=== PATIENT | male | born 1990 | race Caucasian/White ===

== ENCOUNTER 2020-03-07 07:21 | Emergency (ER) | payer OTHER ==
[~2020-03-07] VITALS: Ht 190.5 cm; Wt 111.1 kg
[2020-03-07 07:21] VITALS: BP_SYST 156
--- NOTE | 2020-03-07 07:21 | NUR ---
BROUGHT BACK TO BED #6 AND TRIAGED. REPORT GIVEN TO MARIKA
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
--- NOTE | 2020-03-07 07:50 | NUR ---
ER at bedside examining patient.
[2020-03-07 08:10] LABS: BASOPHILS % (AUTO) 0.6 % (0.0-2.0); EOSINOPHILS # (AUTO) 0.1 K/uL (0.0-0.4); EOSINOPHILS % (AUTO) 1.2 % (0.0-4.0); HEMATOCRIT 42.6 % (36-54); HEMOGLOBIN 13.9 g/dL (14.0-18.0); LYMPHOCYTES # (AUTO) 1.7 K/uL (1.0-5.5); LYMPHOCYTES % (AUTO) 27.8 % (20.5-51.5); MEAN CORPUSCULAR HEMOGLOBIN 28 pg (27-31); MEAN CORPUSCULAR HGB CONC 33 % (32-36); MEAN CORPUSCULAR VOLUME 85 fL (79.0-98.0); MONOCYTES # (AUTO) 0.5 K/uL (0.0-1.0); MONOCYTES % (AUTO) 8.8 % (1.7-9.3); NEUTROPHILS # (AUTO) 3.7 K/uL (1.8-7.7); NEUTROPHILS % (AUTO) 61.6 % (40.0-70.0); PLATELET COUNT (AUTO) 232 K/uL (130-430); RED BLOOD CELL COUNT(AUTO) 5.03 MIL/uL (4.2-6.2); RED CELL DISTRIBUTION WIDTH 13.1 % (9.0-15.0)
[2020-03-07 08:11] LABS: CALCIUM 9.7 mg/dL (8.4-11.0); CREATININE 1.11 mg/dL (0.55-1.30); POTASSIUM 3.6 mmol/L (3.5-5.1)
[2020-03-07 08:19] LABS: TOTAL BILIRUBIN 0.8 mg/dL (0.0-1.0)
[2020-03-07 08:50] VITALS: BP_SYST 156
--- NOTE | 2020-03-07 08:51 | NUR ---
Patient given written and verbal discharge instructions and verbalizes understanding. ER MD discussed with patient the results and treatment provided. Patient in stable condition. ID arm band removed. IV catheter removed intact and dressing applied, no active bleeding. Rx of Motrin given. Patient educated on pain management and to follow up with PMD. Pain Scale 0/10. Opportunity for questions provided and answered. Medication side effect fact sheet provided.
== END 2020-03-07 08:51 | disposition home or self-care (01) ==
LOC: SED 07:21
DX: R07.2 Precordial pain (principal)
CPT/HCPCS: 36415; 71045; 80053; 82550-TC; 84484; 85025; 93005; 99285

== ENCOUNTER 2020-03-12 13:03 | Emergency (ER) | payer OTHER ==
[~2020-03-12] VITALS: Ht 190.5 cm; Wt 110.2 kg
[2020-03-12 13:15] VITALS: BP_SYST 138
[2020-03-12 14:37] VITALS: BP_SYST 128
== END 2020-03-12 14:38 | disposition home or self-care (01) ==
LOC: SED 13:03
DX: F41.9 Anxiety disorder, unspecified (principal); R06.4 Hyperventilation
CPT/HCPCS: 36600; 82803-TC; 99284